=== PATIENT | female | born 1990 | race Caucasian/White ===

== ENCOUNTER 2018-03-30 09:22 | Emergency (ER) | payer OTHER | END 2018-03-30 10:29 | disposition home or self-care (01) | LOC: M ED 09:22 | DX: S63.502A Unspecified sprain of left wrist, initial encounter (principal); X58.XXXA Exposure to other specified factors, initial encounter; Y92.89 Other specified places as the place of occurrence of the external cause | CPT/HCPCS: 73110 ==

== ENCOUNTER → 2019-10-02 | Outpatient (REF) | payer OTHER, BC | LOC: M LAB REF 12:42 | PROVIDERS: ATTEND Physician Assistant | DX: J02.9 Acute pharyngitis, unspecified (principal) ==

== ENCOUNTER 2021-12-16 19:39 | Emergency (ER) | payer BC ==
[~2021-12-16] VITALS: Ht 170.2 cm; Wt 84.1 kg
[2021-12-16] MEDS ORDERED: IBUP80TA PO (19:45)
[2021-12-16 21:17] VITALS: BP 140/87
== END 2021-12-16 21:26 | disposition home or self-care (01) ==
LOC: M ED 19:39
DX: S93.401A Sprain of unspecified ligament of right ankle, initial encounter (principal); X50.9XXA Other and unspecified overexertion or strenuous movements or postures, initial encounter; Y92.018 Other place in single-family (private) house as the place of occurrence of the external cause

== ENCOUNTER → 2022-10-11 | Outpatient (REF) | payer BC ==
[~2022-10-11] MED LIST: IBUP80TA PO
== END ==
LOC: M WUC 09:18
PROVIDERS: ATTEND Physician Assistant
DX: J02.9 Acute pharyngitis, unspecified (principal)

== ENCOUNTER 2022-12-26 00:27 | Emergency (ER) | payer BC ==
[~2022-12-26] VITALS: Ht 170.2 cm; Wt 84.0 kg
[2022-12-26 01:31] LABS: BASO # 0.1 10^3/uL (0.0-0.2); BASO % 0.5 % (0.0-1.0); EOS # 0.1 10^3/uL (0.0-0.5); EOS % 0.4 % (0.0-3.0); HEMATOCRIT 35.9 % (36.0-47.0); HEMOGLOBIN 11.8 g/dl (12.0-15.5); LYMPH # 1.2 10^3/uL (1.5-5.0); LYMPH % 9.4 % (24.0-44.0); MEAN CORPUSCULAR HEMOGLOBIN 26.7 pg (27.0-33.0); MEAN CORPUSCULAR HGB CONC 32.9 g/dl (32.0-36.5); MEAN CORPUSCULAR VOLUME 81.2 fl (80.0-96.0); MONO # 0.6 10^3/uL (0.0-0.8); MONO % 4.6 % (2.0-8.0); NEUTROPHILS # 10.5 10^3/uL (1.5-8.5); NEUTROPHILS % 84.7 % (36.0-66.0); PLATELET COUNT, AUTOMATED 315 10^3/uL (150-450); RED BLOOD COUNT 4.42 10^6/uL (4.00-5.40); WHITE BLOOD COUNT 12.4 10^3/uL (4.0-10.0)
[2022-12-26 01:58] LABS: ALBUMIN 3.5 G/DL (3.2-5.2); BILIRUBIN,DIRECT 0.1 MG/DL (<0.4); BILIRUBIN,TOTAL 0.4 MG/DL (0.3-1.2); TOTAL PROTEIN 6.8 G/DL (5.7-8.2)
[2022-12-26] MEDS ORDERED: FLOM0.4C39 PO (02:06)
[2022-12-26 02:15] VITALS: BP 131/90
[2022-12-26] MEDS ORDERED: TAMSULOSIN 0.4 MG CAP PO ONE (02:20)
[2022-12-26] MEDS ORDERED: ONDA4TAB6 PO (04:04)
== END 2022-12-26 04:34 | disposition home or self-care (01) ==
LOC: EDBD 00:27 → M ED 00:27
DX: N20.1 Calculus of ureter (principal)